=== PATIENT | female | born 1970 | race Caucasian/White ===

== ENCOUNTER 2019-10-02 17:29 | Inpatient (IN) ==
--- NOTE | 2019-10-02 18:21 | Emergency Department Note ---
Impression & Plan Mood disorder, Depression ED Provider Note NAME: SISSY JUDD AGE: 49 SEX: F : 1970 ARRIVES VIA: Walk-In INFORMANT: Patient ED PROVIDER(S): Chandler Beaulieu DO CHIEF COMPLAINT: Depression HPI: Patient is a 49-year-old female who lives at home with 1 of her children that presents the ER referred in by her psychiatrist. Patient has a past medical history of schizoaffective disorder with depression which she has been struggling with for multiple years. She is brought in by her sister. She notes that she is depressed and sad. She has been unable to go to work for the past week. She has been eating and drinking. She notes she has been sleeping more. Denies any suicidal homicidal ideations. No auditory or visual hallucinations. Discussed with her psychiatrist who referred her in. He notes that she is at the point where she is unable to care for herself. He notes this is happened multiple times before in the past. He notes that she will need inpatient treatment. She has had increasing visits with him via telemedicine. He has see n her 3 times in the past week. He notes that she has become more paranoid. She is also become more depressed and notes that is not caring for self in regards to going to work. ROS: See above HPI for pertinent positives & negatives. A total of 10 systems reviewed and were otherwise negative. PAST MEDICAL HISTORY:See Below PAST SURGICAL HISTORY:See Below FAMILY HISTORY:See Below SOCIAL HISTORY:See Below HOME MEDICATIONS:See Below ALLERGIES:See Below VITALS:See Below PHYSICAL EXAMINATION: GENERAL: Sitting up in bed, alert, well appearing, well nourished, no distress, non-toxic EYE EXAM: normal conjunctiva. PERRL and EOM's grossly intact. OROPHARYNX: no exudate, no erythema, lips, buccal mucosa, and tongue normal and mucous membranes are moist NECK: supple, no nuchal rigidity, no adenopathy, non-tender LUNGS: Clear to auscultation. Normal chest wall mechanics HEART: no murmurs, S1 normal and S2 normal ABDOMEN: abdomen soft, non-tender, normo-active bowel sounds, no masses, no rebound or guarding. BACK: Back is symmetrical on inspection and there is no deformity, no midline tenderness, no CVA tenderness. SKIN: no rashes and no bruising UPPER EXTREMITIES: upper extremities are grossly normal. LOWER EXTREMITIES: No pitting edema. NEURO EXAM: Normal sensorium, cranial nerves II-XII grossly intact, normal speech, no gross weakness of arms, no gross weakness of legs. MEDICAL DECISION MAKING: Patient is a 49-year-old female presents the ER for depression. She was referred in by her psychiatrist. She is been more reserved and withdrawn. She is been seeing him more frequently. He notes that she is spiraling downhill and cannot take care of herself. She is not going to work. She is eating and drinking. Denies any suicidal or homicidal ideations. No auditory visual hallucinations. Labs were obtained and showed no significant leukocytosis or anemia. BMP along with LFTs and TSH was unremarkable. UA was negative. Tox was negative. Alcohol was negative. Patient was updated bedside. She was agreeable and came in on 2 oh 1-3 S. Triage Nursing notes reviewed. Prior medical records reviewed Vital Signs: reviewed and remarkable for tachycardia Differential diagnosis: Mood disorder, infection, hypoglycemia, electrolyte abnormalities, cardiac sources, intracerebral event, toxicologic, trauma, neurologic, as well as other pathologies. ER treatment provided: See below Diagnostics interpreted by me: ECG: none Laboratory studies: As stated above and show below. Imaging studies: None Consultation(s): 3 S. and her psychiatric rn care manager and patient was admitted. ED COURSE: Procedures: none Critical Care: None Past Med/Surg History Social History Preferred Language: Zimbabwean Feels Safe at Home: Yes Smoking Status: Current every day smoker Tobacco Type: cigarettes ; Allergies Allergies Allergy/AdvReac Type Severity Reaction Status Date / Time No Known Allergies Allergy Unknown Verified 12/08/04 19:46 Home Meds Home Medications Medication Instructions Recorded Confirmed clonazepam 2 mg PO DAILY 10/02/19 10/02/19 clozapine 300 mg PO BID 10/02/19 10/02/19 clozapine See Rx Instructions .ROUTE .COMPLEX 10/02/19 10/02/19 escitalopram oxalate 20 mg PO DAILY 10/02/19 10/02/19 levothyroxine 137 mcg PO DAILY 10/02/19 10/02/19 levothyroxine 150 mcg PO DAILY 10/02/19 10/02/19 lisinopril 10 mg PO DAILY 10/02/19 10/02/19 lithium carbonate 12,000 mg PO HS 10/02/19 10/02/19 magnesium oxide 400 mg PO DAILY 10/02/19 10/02/19 meloxicam 15 mg PO DAILY 10/02/19 10/02/19 metformin 500 mg PO DAILY 10/02/19 10/02/19 oxybutynin chloride 15 mg PO DAILY 10/02/19 10/02/19 risperidone 4 mg PO HS 10/02/19 10/02/19 simvastatin 10 mg PO DAILY 10/02/19 10/02/19 tizanidine 2 mg PO HS PRN 10/02/19 10/02/19 Results & Data (ED) Vital Signs Vital Signs - 24 hr 10/02/19 17:31 10/02/19 19:31 10/02/19 21:58 Temperature 36.7 C Temperature Source Oral Pulse Rate 119 H 100 H Pulse Rate [Finger] 100 H Pulse Rhythm Regular Pulse Strength Normal Respiratory Rate 18 20 Respiratory Effort / Characteristics Non-Labored Non-Labored Spontaneous Respiratory Depth Normal Normal Respiratory Pattern Regular Blood Pressure 111/60 137/80 Blood Pressure [Left Arm] 106/76 Blood Pressure Mean 77 Blood Pressure Mean [Left Arm] 86 Blood Pressure Position Sitting Pulse Oximetry 98 94 95 Oxygen Delivery Method Room Air Room Air Room Air Sepsis Recent Fever Within 48 Hours No Sepsis Action Taken by Nursing No Action Required Laboratory Data Result diagrams: 10/02/19 18:17 10/02/19 18:17 Lab Results 10/02/19 10/02/19 10/02/19 Range/Units 18:17 18:17 18:17 WBC 9.46 (4.8-10.8) K/uL RBC 4.58 (4.2-5.4) M/uL Hgb 13.8 (12.0-16.0) g/dL Hct 42.4 (37-47) % MCV 92.6 (80-100) fL MCH 30.1 (25-34) pg MCHC 32.5 (32-36) g/dL RDW Std Deviation 49.0 H (36.4-46.3) fL RDW Coeff of Nafisa 14.6 H (11.5-14.5) % Plt Count 227 (130-400) K/uL MPV 9.5 (7.4-10.4) fL Immature Gran % (Auto) 0.2 % Neut % (Auto) 71.2 % Lymph % (Auto) 23.8 % [place] % (Auto) 3.8 % Eos % (Auto) 0.8 % Baso % (Auto) 0.2 % Immature Gran # (Auto) 0.02 (0.00-0.02) K/uL Neut # (Auto) 6.73 H (1.4-6.5) K/uL Lymph # (Auto) 2.25 (1.2-3.4) K/uL [place] # (Auto) 0.36 (0.11-0.59) K/uL Eos # (Auto) 0.08 (0-0.5) K/uL Baso # (Auto) 0.02 (0-0.2) K/uL Sodium 136 (136-145) mmol/L Potassium 3.6 (3.5-5.1) mmol/L Chloride 102 (98-107) mmol/L Carbon Dioxide 26 (21-32) mmol/L Anion Gap 8.0 (3-11) BUN 10 (7-18) mg/dl Creatinine 0.80 (0.6-1.2) mg/dl Est Cr Clr Drug Dosing 118.0 ml/min Est GFR ( Amer) 101.0 Est GFR (Non-Af Amer) 87.2 BUN/Creatinine Ratio 12.4 (10-20) Glucose 152 H (70-99) mg/dl Calcium 10.0 (8.5-10.1) mg/dl Total Bilirubin 0.2 (0.2-1) mg/dl AST 44 H (15-37) U/L ALT 57 (12-78) U/L Alkaline Phosphatase 94 (45-117) U/L Total Protein 8.1 (6.4-8.2) gm/dl Albumin 4.0 (3.4-5.0) gm/dl Globulin 4.1 H (2.5-4.0) gm/dl Albumin/Globulin Ratio 1.0 (0.9-2) TSH 0.409 (0.300-4.500) uIu/ml Urine Color Urine Appearance (Clear) Urine pH (4.5-7.5) Ur Specific [place] (1.000-1.030) Urine Protein (Negative) Urine Glucose (UA) (Negative) Urine Ketones (Negative) Urine Blood (Negative) Urine Nitrite (Negative) Urine Bilirubin (Negative) Urine Urobilinogen (Negative) Ur Leukocyte Esterase (Negative) Salicylates 4.1 (2.8-20) mg/dl Urine Opiates Screen (Neg) Ur Methadone, Qual (Neg) Acetaminophen < 2 L (10-30) ug/ml Urine Barbiturates (Neg) Ur Phencyclidine (PCP) (Neg) U Amphetamin/Meth Scrn (Neg) MDMA (Ecstasy) Screen (Neg) U Benzodiazepines Scrn (Neg) [place] (0.6-1.2) mmol/L Ur Cocaine Metabolite (Neg) U Marijuana (THC) Screen (Neg) Ethyl Alcohol mg/dL (0-3) mg/dl 10/02/19 10/02/19 10/02/19 Range/Units 18:17 18:17 18:22 WBC (4.8-10.8) K/uL RBC (4.2-5.4) M/uL Hgb (12.0-16.0) g/dL Hct (37-47) % MCV (80-100) fL MCH (25-34) pg MCHC (32-36) g/dL RDW Std Deviation (36.4-46.3) fL RDW Coeff of Nfaisa (11.5-14.5) % Plt Count (130-400) K/uL MPV (7.4-10.4) fL Immature Gran % (Auto) % Neut % (Auto) % Lymph % (Auto) % [place] % (Auto) % Eos % (Auto) % Baso % (Auto) % Immature Gran # (Auto) (0.00-0.02) K/uL Neut # (Auto) (1.4-6.5) K/uL Lymph # (Auto) (1.2-3.4) K/uL [place] # (Auto) (0.11-0.59) K/uL Eos # (Auto) (0-0.5) K/uL Baso # (Auto) (0-0.2) K/uL Sodium (136-145) mmol/L Potassium (3.5-5.1) mmol/L Chloride (98-107) mmol/L Carbon Dioxide (21-32) mmol/L Anion Gap (3-11) BUN (7-18) mg/dl Creatinine (0.6-1.2) mg/dl Est Cr Clr Drug Dosing ml/min Est GFR ( Amer) Est GFR (Non-Af Amer) BUN/Creatinine Ratio (10-20) Glucose (70-99) mg/dl Calcium (8.5-10.1) mg/dl Total Bilirubin (0.2-1) mg/dl AST (15-37) U/L ALT (12-78) U/L Alkaline Phosphatase (45-117) U/L Total Protein (6.4-8.2) gm/dl Albumin (3.4-5.0) gm/dl Globulin (2.5-4.0) gm/dl Albumin/Globulin Ratio (0.9-2) TSH (0.300-4.500) uIu/ml Urine Color Urine Appearance (Clear) Urine pH (4.5-7.5) Ur Specific [place] (1.000-1.030) Urine Protein (Negative) Urine Glucose (UA) (Negative) Urine Ketones (Negative) Urine Blood (Negative) Urine Nitrite (Negative) Urine Bilirubin (Negative) Urine Urobilinogen (Negative) Ur Leukocyte Esterase (Negative) Salicylates (2.8-20) mg/dl Urine Opiates Screen Neg (Neg) Ur Methadone, Qual Neg (Neg) Acetaminophen (10-30) ug/ml Urine Barbiturates Neg (Neg) Ur Phencyclidine (PCP) Neg (Neg) U Amphetamin/Meth Scrn Neg (Neg) MDMA (Ecstasy) Screen Neg (Neg) U Benzodiazepines Scrn Neg (Neg) [place] 0.7 (0.6-1.2) mmol/L Ur Cocaine Metabolite Neg (Neg) U Marijuana (THC) Screen Neg (Neg) Ethyl Alcohol mg/dL < 3.0 (0-3) mg/dl 10/02/19 Range/Units 18:22 WBC (4.8-10.8) K/uL RBC (4.2-5.4) M/uL Hgb (12.0-16.0) g/dL Hct (37-47) % MCV (80-100) fL MCH (25-34) pg MCHC (32-36) g/dL RDW Std Deviation (36.4-46.3) fL RDW Coeff of Nafisa (11.5-14.5) % Plt Count (130-400) K/uL MPV (7.4-10.4) fL Immature Gran % (Auto) % Neut % (Auto) % Lymph % (Auto) % [place] % (Auto) % Eos % (Auto) % Baso % (Auto) % Immature Gran # (Auto) (0.00-0.02) K/uL Neut # (Auto) (1.4-6.5) K/uL Lymph # (Auto) (1.2-3.4) K/uL [place] # (Auto) (0.11-0.59) K/uL Eos # (Auto) (0-0.5) K/uL Baso # (Auto) (0-0.2) K/uL Sodium (136-145) mmol/L Potassium (3.5-5.1) mmol/L Chloride (98-107) mmol/L Carbon Dioxide (21-32) mmol/L Anion Gap (3-11) BUN (7-18) mg/dl Creatinine (0.6-1.2) mg/dl Est Cr Clr Drug Dosing ml/min Est GFR ( Amer) Est GFR (Non-Af Amer) BUN/Creatinine Ratio (10-20) Glucose (70-99) mg/dl Calcium (8.5-10.1) mg/dl Total Bilirubin (0.2-1) mg/dl AST (15-37) U/L ALT (12-78) U/L Alkaline Phosphatase (45-117) U/L Total Protein (6.4-8.2) gm/dl Albumin (3.4-5.0) gm/dl Globulin (2.5-4.0) gm/dl Albumin/Globulin Ratio (0.9-2) TSH (0.300-4.500) uIu/ml Urine Color Yellow Urine Appearance Clear (Clear) Urine pH 7.5 (4.5-7.5) Ur Specific [place] 1.009 (1.000-1.030) Urine Protein Negative (Negative) Urine Glucose (UA) Negative (Negative) Urine Ketones Negative (Negative) Urine Blood Negative (Negative) Urine Nitrite Negative (Negative) Urine Bilirubin Negative (Negative) Urine Urobilinogen Negative (Negative) Ur Leukocyte Esterase Negative (Negative) Salicylates (2.8-20) mg/dl Urine Opiates Screen (Neg) Ur Methadone, Qual (Neg) Acetaminophen (10-30) ug/ml Urine Barbiturates (Neg) Ur Phencyclidine (PCP) (Neg) U Amphetamin/Meth Scrn (Neg) MDMA (Ecstasy) Screen (Neg) U Benzodiazepines Scrn (Neg) [place] (0.6-1.2) mmol/L Ur Cocaine Metabolite (Neg) U Marijuana (THC) Screen (Neg) Ethyl Alcohol mg/dL (0-3) mg/dl Discharge Plan Visit Data Chief Complaint: Mental Health Evaluation Stated Complaint: Mental Health Evaluation ED Provider: Chandler Beaulieu Discharge Problem: Mood disorder, Depression Discharge Instructions Interventions: ED Discharge Assessment Last Done: 10/02/19 21:58 Forms Stand Alone Forms: [facility], Suicide Prevention Resources Prescriptions Prescriptions: No Action clonazepam 1 mg Tablet 2 mg PO DAILY RF: 0 tizanidine 2 mg Tablet 2 mg PO HS PRN (Reason: Muscle Spasm) RF: 0 lithium carbonate 300 mg Tablet 12,000 mg PO HS RF: 0 risperidone 4 mg Tablet 4 mg PO HS RF: 0 clozapine 100 mg Tablet 300 mg PO BID RF: 0 simvastatin 10 mg Tablet 10 mg PO DAILY RF: 0 levothyroxine 150 mcg Tablet 150 mcg PO DAILY RF: 0 escitalopram oxalate 20 mg Tablet 20 mg PO DAILY RF: 0 oxybutynin chloride 15 mg Tablet Extended Release 24hr 15 mg PO DAILY RF: 0 lisinopril 10 mg Tablet 10 mg PO DAILY RF: 0 levothyroxine 137 mcg Tablet 137 mcg PO DAILY RF: 0 magnesium oxide 400 mg magnesium Tablet 400 mg PO DAILY RF: 0 clozapine 25 mg Tablet See Rx Instructions .ROUTE .COMPLEX RF: 0 meloxicam 15 mg Tablet 15 mg PO DAILY RF: 0 metformin 500 mg Tablet 500 mg PO DAILY RF: 0 Referrals Referrals: PCP,NO [Primary Care Provider] - Discharge Problem: Depression Qualifiers: Depression Type: unspecified Qualified Code(s): F32.9 - Major depressive disorder, single episode, unspecified
[2019-10-02 18:45] LABS: Basophils # (auto) 0.02 K/uL (0-0.2); Basophils % (auto) 0.2 %; Eosinophils # (auto) 0.08 K/uL (0-0.5); Eosinophils % (auto) 0.8 %; Hematocrit (blood only) 42.4 % (37-47); Hemoglobin 13.8 g/dL (12.0-16.0); Immature Granulocytes # (auto) 0.02 K/uL (0.00-0.02); Immature Granulocytes % (auto) 0.2 %; Lymphocytes # (auto) 2.25 K/uL (1.2-3.4); Lymphocytes % (auto) 23.8 %; Mean Corpuscular Hemoglobin 30.1 pg (25-34); Mean Corpuscular Hgb Conc 32.5 g/dL (32-36); Mean Corpuscular Volume 92.6 fL (80-100); Mean Platelet Volume 9.5 fL (7.4-10.4); Monocytes # (auto) 0.36 K/uL (0.11-0.59); Monocytes % (auto) 3.8 %; Neutrophils # (auto) 6.73 K/uL (1.4-6.5); Neutrophils % (auto) 71.2 %; Platelet Count 227 K/uL (130-400); RDW Coefficient of Variation 14.6 % (11.5-14.5); Red Blood Count 4.58 M/uL (4.2-5.4); White Blood Count 9.46 K/uL (4.8-10.8)
[2019-10-02 18:47] LABS: Appearance Urine Clear (Clear); Bilirubin Urine Negative (Negative); Blood Urine Negative (Negative); Color Urine Yellow; Glucose Urine UA Negative (Negative); Ketones Urine Negative (Negative); Leukocyte Esterase Urine Negative (Negative); Nitrite Urine Negative (Negative); Protein Urine Negative (Negative); Specific Gravity Urine 1.009 (1.000-1.030); Urobilinogen Urine Negative (Negative); pH Urine 7.5 (4.5-7.5)
[2019-10-02 19:05] LABS: BUN Creatinine Ratio 12.4 (10-20); Est GFR (Non-African American) 87.2; Potassium 3.6 mmol/L (3.5-5.1)
[2019-10-02 19:09] LABS: Acetaminophen < 2 ug/ml (10-30); Salicylate 4.1 mg/dl (2.8-20)
[2019-10-02 19:14] LABS: Amphetamines+Metham, Urine Neg (Neg); Barbiturates, Urine Neg (Neg); Benzodiazepine, Urine Neg (Neg); Cocaine, Urine Neg (Neg); MDMA (Ecstacy), Urine Neg (Neg); Methadone, Urine Neg (Neg); Opiate, Urine Neg (Neg); Phencyclidine, Urine Neg (Neg)
[2019-10-02 19:15] LABS: Bilirubin,Total 0.2 mg/dl (0.2-1); Globulin 4.1 gm/dl (2.5-4.0); Thyroid Stimulating Hormone 0.409 uIu/ml (0.300-4.500); Total Protein 8.1 gm/dl (6.4-8.2)
[2019-10-02] MEDS ORDERED: ACETAMINOPHEN 325 MG TAB PO PRN (21:35)
[2019-10-02] MEDS ORDERED: MAGNESIUM HYDROXIDE SUSP 30 ML UDC PO PRN (21:35)
[2019-10-02] MEDS ORDERED: BISMUTH SUBSALICYLATE PER ML OMNICELL CHARGE PO PRN (21:35)
[2019-10-02] MEDS ORDERED: NICOTINE POLACRILEX 2 MG GUM MT PRN (21:35)
[2019-10-02] MEDS ORDERED: ALUMINUM/MAGNESIUM SUSP 30 ML UDC PO PRN (21:35)
[2019-10-02] MEDS ORDERED: SODIUM CHLORIDE 0.65% NA SOLN 45 ML (OCEAN) PRN (21:35)
[2019-10-02] MEDS ORDERED: cloZAPine 25 MG TAB PO ONE (21:43)
[2019-10-02] MEDS ORDERED: haloperidoL 5 MG TAB PO PRN (21:43)
[2019-10-02] MEDS ORDERED: clonazePAM 1 MG TAB PO ONE (21:44)
[2019-10-02 21:59] VITALS: O2SAT 95
[2019-10-02] MEDS ORDERED: cloZAPine 100 MG TAB PO ONE (22:00)
[2019-10-02] MEDS: risperiDONE 2 MG TABLET PO SCH (22:57)
[2019-10-03 07:41] LABS: Glucose Fasting 173 mg/dl (70-99)
[2019-10-03 07:47] LABS: Chol HDL Ratio 4; Cholesterol 193 mg/dl (0-200); HDL Cholesterol 44 mg/dl; LDL Cholesterol Calculated 101 mg/dl; Triglycerides 238 mg/dl (0-150); VLDL Cholesterol 48 mg/dl
[2019-10-03] MEDS: MAGNESIUM OXIDE 400 MG TAB PO SCH (08:29)
[2019-10-03] MEDS: ESCITALOPRAM OXALATE 20 MG TAB PO SCH (08:29)
[2019-10-03] MEDS: OXYBUTYNIN CHLORIDE XL 5 MG TABCR PO SCH (08:29)
[2019-10-03] MEDS: lisinopriL 10 MG TAB PO SCH (08:30)
[2019-10-03] MEDS: SIMVASTATIN 10 MG TAB PO SCH (08:30)
[2019-10-03] MEDS: NICOTINE 21 MG/24 HR TDSY TD SCH (08:34)
[2019-10-03] MEDS ORDERED: METFORMIN HCL 500 MG TAB PO SCH (09:00)
--- NOTE | 2019-10-03 14:43 | History & Physical ---
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 Ur Phencyclidine (PCP) U Amphetamin/Meth Scrn MDMA (Ecstasy) Screen U Benzodiazepines Scrn [place] Ur Cocaine Metabolite U Marijuana (THC) Screen Ethyl Alcohol mg/dL 10/02/19 10/02/19 10/02/19 18:17 18:17 18:22 WBC RBC Hgb Hct MCV MCH MCHC RDW Std Deviation RDW Coeff of Nafisa Plt Count MPV Immature Gran % (Auto) Neut % (Auto) Lymph % (Auto) [place] % (Auto) Eos % (Auto) Baso % (Auto) Immature Gran # (Auto) Neut # (Auto) Lymph # (Auto) [place] # (Auto) Eos # (Auto) Baso # (Auto) Sodium Potassium Chloride Carbon Dioxide Anion Gap BUN Creatinine Est Cr Clr Drug Dosing Est GFR ( Amer) Est GFR (Non-Af Amer) BUN/Creatinine Ratio Glucose Fasting Glucose Calcium Total Bilirubin AST ALT Alkaline Phosphatase Total Protein Albumin Globulin Albumin/Globulin Ratio Triglycerides Cholesterol LDL Cholesterol, Calc VLDL Cholesterol, Calc HDL Cholesterol Cholesterol/HDL Ratio TSH Urine Color Urine Appearance Urine pH Ur Specific [place] Urine Protein Urine Glucose (UA) Urine Ketones Urine Blood Urine Nitrite Urine Bilirubin Urine Urobilinogen Ur Leukocyte Esterase Salicylates Urine Opiates Screen Neg Ur Methadone, Qual Neg Acetaminophen Urine Barbiturates Neg Ur Phencyclidine (PCP) Neg U Amphetamin/Meth Scrn Neg MDMA (Ecstasy) Screen Neg U Benzodiazepines Scrn Neg [place] 0.7 Ur Cocaine Metabolite Neg U Marijuana (THC) Screen Neg Ethyl Alcohol mg/dL < 3.0 10/02/19 10/03/19 18:22 07:02 WBC RBC Hgb Hct MCV MCH MCHC RDW Std Deviation RDW Coeff of Nafisa Plt Count MPV Immature Gran % (Auto) Neut % (Auto) Lymph % (Auto) [place] % (Auto) Eos % (Auto) Baso % (Auto) Immature Gran # (Auto) Neut # (Auto) Lymph # (Auto) [place] # (Auto) Eos # (Auto) Baso # (Auto) Sodium Potassium Chloride Carbon Dioxide Anion Gap BUN Creatinine Est Cr Clr Drug Dosing Est GFR ( Amer) Est GFR (Non-Af Amer) BUN/Creatinine Ratio Glucose Fasting Glucose 173 H Calcium Total Bilirubin AST ALT Alkaline Phosphatase Total Protein Albumin Globulin Albumin/Globulin Ratio Triglycerides 238 H Cholesterol 193 LDL Cholesterol, Calc 101 VLDL Cholesterol, Calc 48 HDL Cholesterol 44 Cholesterol/HDL Ratio 4 TSH Urine Color Yellow Urine Appearance Clear Urine pH 7.5 Ur Specific [place] 1.009 Urine Protein Negative Urine Glucose (UA) Negative Urine Ketones Negative Urine Blood Negative Urine Nitrite Negative Urine Bilirubin Negative Urine Urobilinogen Negative Ur Leukocyte Esterase Negative Salicylates Urine Opiates Screen Ur Methadone, Qual Acetaminophen Urine Barbiturates Ur Phencyclidine (PCP) U Amphetamin/Meth Scrn MDMA (Ecstasy) Screen U Benzodiazepines Scrn [place] Ur Cocaine Metabolite U Marijuana (THC) Screen Ethyl Alcohol mg/dL Current Inpatient Medications Current Inpatient Medications: Current Inpatient Medications Acetaminophen (Tylenol) 650 mg PO Q4H PRN PRN Reason: Headache or Minor Fever Stop: 11/01/19 21:34 Al Hydrox/Mg Hydrox/Simethicone (Maalox) 30 ml PO Q4H PRN PRN Reason: GI Upset Stop: 11/01/19 21:34 Bismuth Subsalicylate (Kaopectate) 15 ml PO PRN PRN PRN Reason: Loose Stool Stop: 11/01/19 21:34 Escitalopram Oxalate (Lexapro Tab) 20 mg PO DAILY [facility] Stop: 11/02/19 08:59 Last Admin: 10/03/19 08:29 Dose: 20 mg Documented by: Haloperidol (Haldol) 5 mg PO Q6 PRN PRN Reason: Anxiety/Agitation Stop: 11/01/19 21:42 Hydroxyzine HCl (Vistaril) 50 mg PO HSZ PRN PRN Reason: Insomnia Stop: 11/01/19 21:34 Hydroxyzine HCl (Vistaril) 25 mg PO Q4H PRN PRN Reason: Anxiety Stop: 11/01/19 21:34 Lisinopril (Zestril) 10 mg PO DAILY [facility] Stop: 11/02/19 08:59 Last Admin: 10/03/19 08:30 Dose: 10 mg Documented by: [place] Carbonate ([place] Carbonate) 1,200 mg PO HS [facility] Stop: 11/02/19 20:59 Last Admin: 10/02/19 22:56 Dose: 1,200 mg Documented by: Magnesium Hydroxide (Milk Of Magnesia) 30 ml PO DAILY PRN PRN Reason: Constipation Stop: 11/01/19 21:34 Magnesium Oxide (Mag-Ox) 400 mg PO DAILY [facility] Stop: 11/02/19 08:59 Last Admin: 10/03/19 08:29 Dose: 400 mg Documented by: Metformin HCl (Glucophage) 500 mg PO DAILY [facility] Stop: 11/02/19 08:59 Last Admin: 10/03/19 08:29 Dose: 500 mg Documented by: Miscellaneous (Remove Nicoderm Patch) 1 ea N/A DAILY@0859 [facility] Stop: 11/03/19 08:58 Nicotine (Nicoderm Cq) 21 mg TD QAM [facility] Stop: 11/02/19 08:59 Last Admin: 10/03/19 08:34 Dose: 21 mg Documented by: Nicotine Polacrilex (Nicorette 2mg) 1 piece MT PRN PRN PRN Reason: Nicotine Withdrawal Stop: 11/01/19 21:34 Oxybutynin Chloride (Ditropan Xl) 15 mg PO DAILY [facility] Stop: 11/02/19 08:59 Last Admin: 10/03/19 08:29 Dose: 15 mg Documented by: Risperidone (Risperdal) 4 mg PO HS [facility] Stop: 11/02/19 21:59 Last Admin: 10/02/19 22:57 Dose: 4 mg Documented by: Simvastatin (Zocor) 10 mg PO DAILY [facility] Stop: 11/02/19 08:59 Last Admin: 10/03/19 08:30 Dose: 10 mg Documented by: Sodium Chloride ([place] Nasal) 1 - 2 sprays NA PRN PRN PRN Reason: Nasal Dryness/Congestion Stop: 11/01/19 21:34
[2019-10-03] MEDS: METFORMIN HCL ER 500 MG TABCR PO SCH (17:31)
[2019-10-03] MEDS ORDERED: LITHIUM CARBONATE 300 MG TAB PO SCH (21:00)
[2019-10-03] MEDS: risperiDONE 2 MG TABLET PO SCH (21:03)
[2019-10-03] MEDS: LITHIUM CARBONATE SLOW REL 300 MG TAB PO SCH (21:03)
[2019-10-04] MEDS: NICOTINE 21 MG/24 HR TDSY TD SCH (09:00)
[2019-10-04] MEDS: lisinopriL 10 MG TAB PO SCH (09:00)
[2019-10-04] MEDS: LEVOTHYROXINE SODIUM 150 MCG TABLET PO SCH (09:00)
[2019-10-04] MEDS: METFORMIN HCL ER 500 MG TABCR PO SCH ×2 (09:00→17:08)
[2019-10-04] MEDS: ESCITALOPRAM OXALATE 20 MG TAB PO SCH (09:00)
[2019-10-04] MEDS: OXYBUTYNIN CHLORIDE XL 5 MG TABCR PO SCH (09:00)
[2019-10-04] MEDS: MAGNESIUM OXIDE 400 MG TAB PO SCH (09:00)
[2019-10-04] MEDS: SIMVASTATIN 10 MG TAB PO SCH (09:01)
--- NOTE | 2019-10-04 13:15 | Psychiatric Progress Note ---
Date of Service October 04, 2019 Impression / Recommendations Impression This 49-year-old woman with a known history of schizoaffective disorder, bipolar type has been admitted voluntarily at the recommendation of her outpatient psychiatrist, Dr. Marcus Jama. Dr. Jama informs us that he is concerned because he cannot be certain that the patient is taking her medications as prescribed, and, within this context, he has noted a fairly progressive deterioration in her mental status and level of functioning over the past 2 months, but particularly during the past several weeks. Reviewed. Discussed with patient that Klonopin 2 mg daily (perhaps more) cannot be stopped abruptly and although she is not currently noting withdrawal she would be at risk. Also reviewed dosing on Clozaril and need to have plan to restart to avoid having to retitrate, I worry her condition would deteriorate or even have withdrawal dyskinsesia from stopping higher end dosing abruptly). Will monitor on med combo. (1) Schizoaffective disorder, bipolar type: 10/03/19 -The patient has been admitted to the [facility]] behavioral health unit and has been placed on every 15 minute safety checks. She will actively be encouraged to participate in individual, group, activity, and, schedule, family interventions. -The goal will be to help the patient secure case management because of her psychiatrist ongoing concerns about her frequent decompensations and, possibly, nonadherence or confused adherence with medications. We note, however, that this may be difficult given her income, her insurance, and her county of residence. -In consultation with Dr. Jama, we will hold several of her medications for the time being, including clozapine, Clozaril, and tizanidine. We note that the patient's mental status today seems to be substantially better than had been reportedly present prior to admission in the community, and this may be a function of the fact that these medications were held at admission. -Her dose of Lithobid will be changed from 1200 mg at bedtime to a dose of 300 mg in the morning and 600 mg at bedtime, and her lithium level will be rechecked. Dr. Jama notes that the patient tends to do best at a lithium level between 0.8 and 1.0. Her lithium level at admission was 0.7, but this represents a trough level that may have been measured more than 20 hours after her most recent previous dose. -We will continue risperidone 4 mg twice a day and plan to titrate at the recommendation of Dr. Jama, as clinically indicated. -Because the patient is on a mood stabilizer (lithium) we feel comfortable in continuing her dose of Lexapro 20 mg a day, particularly given the patient's complaint of depression. -Patient will be monitored by nursing staff for evidence of excessive fluid intake, and we will repeat her serum electrolytes at the beginning of next week. 10/03 Reviewed above. Restart klonopin 0.5 mg Bid with plan to taper and d/c. Clozaril 200 mg this hs and monitor MS. Perhaps lithium dosing can be done during day. I've also seen euresis with Risperdal 4 mg. Obviously can also be age and body habitus. - (2) Disorganized thinkin10/03/19 -The patient's disorganized thinking appears to wax and wane in a pattern that suggest that it is possibly related to adverse medication effects. Currently, our first approach will be to continue to hold several of her medications, and adjust others, while carefully observing the patient's condition to watch for the emergence of worsening psychotic symptoms. -We have noted some evidence of confusion currently, such as her need to ask the same question several times in close sequence. -Several of the patient's medications are currently being held (see above) and we will observe closely for worsening disorganized thinking and behavior, and well reintroduce those medications and titrate as indicated. (3) Blood glucose elevated: 10/03/2019 -The patient says that she believes that she has "borderline" diabetes. However, her fasting blood glucose level this morning was greater than 170. Elevated blood glucose may be contributing the reported polydipsia. -Repeat serum glucose will be measured on 10/06/201910/03--Reviewed above. HgbA1C on next blood draw. Inventory Assets Strengths: Motivated to treatment. Employed. Positive relationship with her outpatient provider (Dr. Jama). Cooperative with recommended treatments. Supportive family, including her sister and her daughter. Needs: Medication adjustments. Resolution of psychosis. Resolution of perceptual disturbances. Improved mood. Risk Factors Assessment Male: No : Yes Do You Have Access To A Gun?: Yes (Patient says that she believes that her 18-year-old son has several firearms. His firearms are not secured and she acknowledges that she has access to them.) Health Problems: Yes Mental Health Diagnoses: Yes Substance Use Disorders: No Previous Attempt: No Family History of Suicide: No Previous Psychiatric Hospitalization: Yes Hopelessness: No Smoker: Yes Protective Factors Assessment Tenriism Beliefs: Yes (Patient says that she is not a member of any roman catholic, but does believe in "a higher power.") : No Responsible for Young Children: No Employed: Yes ([employer] - has not been going to work dt anxiety) Stable Relationships: Yes Supportive Family: Yes Good Rapport with Provider: Yes Absence of Any Risk Factors Above: No Interval History Chief Complaint "I guess I was falling asleep at work, not sure why I had to come". Review of Systems Sleep Information Total Hours of Sleep: 7.75 Sleep Comments: woke at 0315 by staff for bathroom use. Meal Information Percent Meal Consumed - Breakfast: 100 Percent Meal Consumed - Lunch: 100 Percent Meal Consumed - Dinner: 100 Subjective Subjective Patient was seen & assessed and interval progress reviewed with nursing and social work. Had meeting with sister by phone this am. Reportedly refusing BCM and therapist. Seems most upset by ongoing nocturnal enuresis. States that she was very sedated during day prior to admission, states that she drinks 2 drinks a week of ETOH. Reviewed how her meds were held on admission given reports of AMS. States "I don't need the muscle relaxer". Denies taking extra medication by accident. Asked if snores given thick neck, denies any hx of apnea. States hair is short as falling out. States that thoughts are "like before", specifically denies cavazos or paranoia but is disorganized in that can't explain what she is referring to. Physical Exam Psychiatric Orientation: alert, oriented x 3 and cooperative Apperance: appropriately dressed, appropriately groomed and appeared stated age Eye Contact: + fair eye contact Motor Behavior: + psychomotor retardation Affect: + constricted affect Mood: + depressed mood and + anxious mood Thought Process: goal directed thought process Thought Content: reality based without delusions Suicidal Thoughts: denies suicidal thoughts Homicidal Thoughts: denies homicidal thoughts Hallucinations: no auditory hallucinations and no visual hallucinations Cognition: recent memory grossly intact and remote memory grossly intact Estimated Intelligence: average estimated intelligence Insight: + fair insight Judgement: + limited judgement Vital Signs (Past 24 Hours) Last Vital Signs Temp 36.7 C 10/04/19 06:54 Pulse 91 H 10/04/19 06:54 Resp 20 10/04/19 06:54 BP 127/72 10/04/19 06:54 Pulse Ox 95 10/02/19 21:58 Results & Data ([facility]) Current Inpatient Medications Current Inpatient Medications: Current Inpatient Medications Acetaminophen (Tylenol) 650 mg PO Q4H PRN PRN Reason: Headache or Minor Fever Stop: 11/01/19 21:34 Al Hydrox/Mg Hydrox/Simethicone (Maalox) 30 ml PO Q4H PRN PRN Reason: GI Upset Stop: 11/01/19 21:34 Bismuth Subsalicylate (Kaopectate) 15 ml PO PRN PRN PRN Reason: Loose Stool Stop: 11/01/19 21:34 Clonazepam (Klonopin) 0.5 mg PO BID [facility] Stop: 11/03/19 13:04 Clozapine (Clozapine) 200 mg PO HS [facility] Stop: 11/03/19 21:59 Escitalopram Oxalate (Lexapro Tab) 20 mg PO DAILY [facility] Stop: 11/02/19 08:59 Last Admin: 10/04/19 09:00 Dose: 20 mg Documented by: Haloperidol (Haldol) 5 mg PO Q6 PRN PRN Reason: Anxiety/Agitation Stop: 11/01/19 21:42 Hydroxyzine HCl (Vistaril) 50 mg PO HSZ PRN PRN Reason: Insomnia Stop: 11/01/19 21:34 Hydroxyzine HCl (Vistaril) 25 mg PO Q4H PRN PRN Reason: Anxiety Stop: 11/01/19 21:34 [facility]: 11/03/19 07:59 Last Admin: 10/04/19 09:00 Dose: 150 mcg Documented by: Lisinopril (Zestril) 10 mg PO DAILY [facility] Stop: 11/02/19 08:59 Last Admin: 10/04/19 09:00 Dose: 10 mg Documented by: [place] Carbonate (Lithobid) 600 mg PO HS [facility] Stop: 11/02/19 21:59 Last Admin: 10/03/19 21:03 Dose: 600 mg Documented by: Magnesium Hydroxide (Milk Of Magnesia) 30 ml PO DAILY PRN PRN Reason: Constipation Stop: 11/01/19 21:34 Magnesium Oxide (Mag-Ox) 400 mg PO DAILY [facility] Stop: 11/02/19 08:59 Last Admin: 10/04/19 09:00 Dose: 400 mg Documented by: Metformin HCl (Glucophage Er) 500 mg PO BIDM [facility] Stop: 11/02/19 17:44 Last Admin: 10/04/19 09:00 Dose: 500 mg Documented by: Miscellaneous (Remove Nicoderm Patch) 1 ea N/A DAILY@0859 [facility] Stop: 11/03/19 08:58 Last Admin: 10/04/19 09:07 Dose: 1 ea Documented by: Nicotine (Nicoderm Cq) 21 mg TD QAM [facility] Stop: 11/02/19 08:59 Last Admin: 10/04/19 09:00 Dose: 21 mg Documented by: Nicotine Polacrilex (Nicorette 2mg) 1 piece MT PRN PRN PRN Reason: Nicotine Withdrawal Stop: 11/01/19 21:34 Oxybutynin Chloride (Ditropan Xl) 15 mg PO DAILY [facility] Stop: 11/02/19 08:59 Last Admin: 10/04/19 09:00 Dose: 15 mg Documented by: Risperidone (Risperdal) 4 mg PO HS [facility] Stop: 11/02/19 21:59 Last Admin: 10/03/19 21:03 Dose: 4 mg Documented by: Simvastatin (Zocor) 10 mg PO DAILY [facility] Stop: 11/02/19 08:59 Last Admin: 10/04/19 09:01 Dose: 10 mg Documented by: Sodium Chloride ([place] Nasal) 1 - 2 sprays NA PRN PRN PRN Reason: Nasal Dryness/Congestion Stop: 11/01/19 21:34 Mental Health & Subst Abuse Tx Psychiatrist Name of Psychiatrist: Dr. Jama Psychiatrist's Psychiatric Appointment Comment: [address], [place] [address] Therapist Name of Therapist: . Sourcing Intern Name of Sourcing Intern: None Post Discharge Appointments Primary Care Physician Name Of Family Doctor: [facility] - Dr. Frazier Primary Care Provider Appointment Comment: [address] [place] [address], [address], [place] [address] Contact Information Discharge Discharge Address: [address] [place] [address], [place] [id number]
[2019-10-04] MEDS: clonazePAM 0.5 MG TAB PO SCH ×2 (14:17→21:22)
[2019-10-04] MEDS: LITHIUM CARBONATE SLOW REL 300 MG TAB PO SCH (21:22)
[2019-10-04] MEDS: risperiDONE 2 MG TABLET PO SCH (21:22)
[2019-10-04] MEDS: cloZAPine 100 MG TAB PO SCH (21:22)
[2019-10-05] MEDS: LEVOTHYROXINE SODIUM 150 MCG TABLET PO SCH (08:23)
[2019-10-05] MEDS: NICOTINE 21 MG/24 HR TDSY TD SCH (08:24)
[2019-10-05] MEDS: lisinopriL 10 MG TAB PO SCH (08:25)
[2019-10-05] MEDS: OXYBUTYNIN CHLORIDE XL 5 MG TABCR PO SCH (08:25)
[2019-10-05] MEDS: MAGNESIUM OXIDE 400 MG TAB PO SCH (08:25)
[2019-10-05] MEDS: METFORMIN HCL ER 500 MG TABCR PO SCH ×2 (08:25→17:24)
[2019-10-05] MEDS: ESCITALOPRAM OXALATE 20 MG TAB PO SCH (08:25)
[2019-10-05] MEDS: SIMVASTATIN 10 MG TAB PO SCH (08:26)
[2019-10-05] MEDS: clonazePAM 0.5 MG TAB PO SCH ×2 (08:29→20:47)
--- NOTE | 2019-10-05 10:37 | Psychiatric Progress Note ---
Date of Service October 05, 2019 Impression / Recommendations Impression This 49-year-old woman with a known history of schizoaffective disorder, bipolar type has been admitted voluntarily at the recommendation of her outpatient psychiatrist, Dr. Marcus Jama. Dr. Jama informs us that he is concerned because he cannot be certain that the patient is taking her medications as prescribed, and, within this context, he has noted a fairly progressive deterioration in her mental status and level of functioning over the past 2 months, but particularly during the past several weeks. Reviewed. Discussed with patient that Klonopin 2 mg daily (perhaps more) cannot be stopped abruptly and although she is not currently noting withdrawal she would be at risk. Also reviewed dosing on Clozaril and need to have plan to restart to avoid having to retitrate, I worry her condition would deteriorate or even have withdrawal dyskinsesia from stopping higher end dosing abruptly). No issues overnight. (1) Schizoaffective disorder, bipolar type: 10/03/19 -The patient has [facility] and has been placed on every 15 minute safety checks. She will actively be encouraged to participate in individual, group, activity, and, schedule, family interventions. -The goal will be to help the patient secure case management because of her psychiatrist ongoing concerns about her frequent decompensations and, possibly, nonadherence or confused adherence with medications. We note, however, that this may be difficult given her income, her insurance, and her county of residence. -In consultation with Dr. Jama, we will hold several of her medications for the time being, including clozapine, Clozaril, and tizanidine. We note that the patient's mental status today seems to be substantially better than had been reportedly present prior to admission in the community, and this may be a function of the fact that these medications were held at admission. -Her dose of Lithobid will be changed from 1200 mg at bedtime to a dose of 300 mg in the morning and 600 mg at bedtime, and her lithium level will be rechecked. Dr. Jama notes that the patient tends to do best at a lithium level between 0.8 and 1.0. Her lithium level at admission was 0.7, but this represents a trough level that may have been measured more than 20 hours after her most recent previous dose. -We will continue risperidone 4 mg twice a day and plan to titrate at the recommendation of Dr. Jama, as clinically indicated. -Because the patient is on a mood stabilizer (lithium) we feel comfortable in continuing her dose of Lexapro 20 mg a day, particularly given the patient's complaint of depression. -Patient will be monitored by nursing staff for evidence of excessive fluid intake, and we will repeat her serum electrolytes at the beginning of next week. 10/03 Reviewed above. Restart klonopin 0.5 mg Bid with plan to taper and d/c. Clozaril 200 mg this hs and monitor MS. Perhaps lithium dosing can be done dur. I've also seen euresis with Risperdal 4 mg. Obviously can also be age and body habitus. 10/04 taper Klonopin to 0.25 mg po BID with plan to d/c upon discharge. Case review with Dr. Jama tomorrow. - (2) Disorganized thinkin10/03/19 -The patient's disorganized thinking appears to wax and wane in a pattern that suggest that it is possibly related to adverse medication effects. Currently, our first approach will be to continue to hold several of her medications, and adjust others, while carefully observing the patient's condition to watch for the emergence of worsening psychotic symptoms. -We have noted some evidence of confusion currently, such as her need to ask the same question several times in close sequence. -Several of the patient's medications are currently being held (see above) and we will observe closely for worsening disorganized thinking and behavior, and well reintroduce those medications and titrate as indicated. (3) Blood glucose elevated: 10/03/2019 -The patient says that she believes that she has "borderline" diabetes. However, her fasting blood glucose level this morning was greater than 170. Elevated blood glucose may be contributing the reported polydipsia. -Repeat serum glucose will be measured on 10/06/201910/03--Reviewed above. HgbA1C on next blood draw. Inventory Assets Strengths: Motivated to treatment. Employed. Positive relationship with her outpatient provider (Dr. Jama). Cooperative with recommended treatments. Supportive family, including her sister and her daughter. Needs: Medication adjustments. Resolution of psychosis. Resolution of perceptual disturbances. Improved mood. Risk Factors Assessment Male: No : Yes Do You Have Access To A Gun?: Yes (Patient says that she believes that her 18-year-old son has several firearms. His firearms are not secured and she ackn owledges that she has access to them.) Health Problems: Yes Mental Health Diagnoses: Yes Substance Use Disorders: No Previous Attempt: No Family History of Suicide: No Previous Psychiatric Hospitalization: Yes Hopelessness: No Smoker: Yes Protective Factors Assessment Orthodox Beliefs: Yes (Patient says that she is not a member of any episcopalian, but does believe in "a higher power.") : No Responsible for Young Children: No Employed: Yes ([employer] - has not been going to work dt anxiety) Stable Relationships: Yes Supportive Family: Yes Good Rapport with Provider: Yes Absence of Any Risk Factors Above: No Interval History Chief Complaint "I wrote down my meds, I'd like to leave". Review of Systems Sleep Information Total Hours of Sleep: 6.25 Sleep Comments: awake at 0230 (by staff) for bathroom use. Meal Information Percent Meal Consumed - Breakfast: 100 Percent Meal Consumed - Lunch: 100 Percent Meal Consumed - Dinner: 100 Nutrition Comment: pt. had small meal of cereal and coffee Subjective Subjective Patient was seen & assessed and interval progress reviewed with nursing and social work. No new issues overnight, incontinent X1. She did express some interest in seeing Trinidad Kaur again for therapy. She admitted to staff that she has difficulty keeping track of her medications and is willing to consider help with this after discharge. Discussed fasting labs for am and also need for PCP follow up for possible sleep study to rule out apnea. Discussed need to review progress with outpatient provider and do referral. Physical Exam Psychiatric Orientation: alert Apperance: appropriately groomed Eye Contact: + fair eye contact Motor Behavior: no abnormal motor movements Speech: normal rate/rhythm/volume of speech Affect: euthymic affect "I'm fine" Thought Process: + concrete thought process Thought Content: reality based without delusions Suicidal Thoughts: denies suicidal thoughts Homicidal Thoughts: denies homicidal thoughts Hallucinations: no auditory hallucinations and no visual hallucinations Cognition: attention grossly intact Insight: + limited insight Judgement: + limited judgement Vital Signs (Past 24 Hours) Last Vital Signs Temp 36.7 C 10/05/19 06:52 Pulse 83 10/05/19 06:52 Resp 20 10/05/19 06:52 BP 148/90 H 10/05/19 06:52 Pulse Ox 95 10/02/19 21:58 Results & Data ([facility]) Current Inpatient Medications Current Inpatient Medications: Current Inpatient Medications Acetaminophen (Tylenol) 650 mg PO Q4H PRN PRN Reason: Headache or Minor Fever Stop: 11/01/19 21:34 Al Hydrox/Mg Hydrox/Simethicone (Maalox) 30 ml PO Q4H PRN PRN Reason: GI Upset Stop: 11/01/19 21:34 Bismuth Subsalicylate (Kaopectate) 15 ml PO PRN PRN PRN Reason: Loose Stool Stop: 11/01/19 21:34 Clonazepam (Klonopin) 0.5 mg PO BID [facility] Stop: 10/05/19 21:01 Last Admin: 10/05/19 08:29 Dose: 0.5 mg Documented by: Clonazepam (Klonopin) 0.25 mg PO BID [facility] Stop: 11/05/19 08:59 Clozapine (Clozapine) 200 mg PO HS [facility] Stop: 11/03/19 21:59 Last Admin: 10/04/19 21:22 Dose: 200 mg Documented by: Escitalopram Oxalate (Lexapro Tab) 20 mg PO DAILY [facility] Stop: 11/02/19 08:59 Last Admin: 10/05/19 08:25 Dose: 20 mg Documented by: Haloperidol (Haldol) 5 mg PO Q6 PRN PRN Reason: Anxiety/Agitation Stop: 11/01/19 21:42 Hydroxyzine HCl (Vistaril) 50 mg PO HSZ PRN PRN Reason: Insomnia Stop: 11/01/19 21:34 Hydroxyzine HCl (Vistaril) 25 mg PO Q4H PRN PRN Reason: Anxiety Stop: 11/01/19 21:34 Levothyroxine Sodium (Synthroid) 150 mcg PO DAILY [facility] Stop: 11/03/19 07:59 Last Admin: 10/05/19 08:23 Dose: 150 mcg Documented by: Lisinopril (Zestril) 10 mg PO DAILY [facility] Stop: 11/02/19 08:59 Last Admin: 10/05/19 08:25 Dose: 10 mg Documented by: [place] Carbonate (Lithobid) 600 mg PO HS [facility] Stop: 11/02/19 21:59 Last Admin: 10/04/19 21:22 Dose: 600 mg Documented by: Magnesium Hydroxide (Milk Of Magnesia) 30 ml PO DAILY PRN PRN Reason: Constipation Stop: 11/01/19 21:34 Magnesium Oxide (Mag-Ox) 400 mg PO DAILY [facility] Stop: 11/02/19 08:59 Last Admin: 10/05/19 08:25 Dose: 400 mg Documented by: Metformin HCl (Glucophage Er) 500 mg PO BIDM [facility] Stop: 11/02/19 17:44 Last Admin: 10/05/19 08:25 Dose: 500 mg Documented by: Miscellaneous (Remove Nicoderm Patch) 1 ea N/A DAILY@[id number] [facility] Stop: 11/03/19 08:58 Last Admin: 10/05/19 08:33 Dose: 1 ea Documented by: Nicotine (Nicoderm Cq) 21 mg TD QAM [facility] Stop: 11/02/19 08:59 Last Admin: 10/05/19 08:24 Dose: 21 mg Documented by: Nicotine Polacrilex (Nicorette 2mg) 1 piece MT PRN PRN PRN Reason: Nicotine Withdrawal Stop: 11/01/19 21:34 Oxybutynin Chloride (Ditropan Xl) 15 mg PO DAILY [facility] Stop: 11/02/19 08:59 Last Admin: 10/05/19 08:25 Dose: 15 mg Documented by: Risperidone (Risperdal) 4 mg PO HS [facility] Stop: 11/02/19 21:59 Last Admin: 10/04/19 21:22 Dose: 4 mg Documented by: Simvastatin (Zocor) 10 mg PO DAILY [facility] Stop: 11/02/19 08:59 Last Admin: 10/05/19 08:26 Dose: 10 mg Documented by: Sodium Chloride (Pratt Nasal) 1 - 2 sprays NA PRN PRN PRN Reason: Nasal Dryness/Congestion Stop: 11/01/19 21:34 Mental Health & Subst Abuse Tx Psychiatrist Name of Psychiatrist: Dr. Jama Psychiatrist's Psychiatric Appointment Comment: [address] [address], [place] [address] Therapist Name of Therapist: . Ehs Engineer Name of Ehs Engineer: None Post Discharge Appointments Primary Care Physician Name Of Family Doctor: [facility] - Dr. Frazier Primary Care Provider Appointment Comment: [address] [place] [address], [address], [place] [address] Contact Information Discharge Discharge Address: [address] [facility], [place] [address]
[2019-10-05] MEDS: LITHIUM CARBONATE SLOW REL 300 MG TAB PO SCH (20:46)
[2019-10-05] MEDS: risperiDONE 2 MG TABLET PO SCH (20:46)
[2019-10-05] MEDS: cloZAPine 100 MG TAB PO SCH (20:47)
[2019-10-06 06:56] VITALS: BP 121/78; TEMP 98.1
[2019-10-06 07:48] LABS: BUN Creatinine Ratio 14.6 (10-20); Calcium 9.2 mg/dl (8.5-10.1); Creatinine Clr Calc Pharmacy 146.9 ml/min; Est GFR (African American) 122.3; Est GFR (Non-African American) 105.5; Potassium 3.7 mmol/L (3.5-5.1)
[2019-10-06] MEDS: MAGNESIUM OXIDE 400 MG TAB PO SCH (08:19)
[2019-10-06] MEDS: ESCITALOPRAM OXALATE 20 MG TAB PO SCH (08:19)
[2019-10-06] MEDS: lisinopriL 10 MG TAB PO SCH (08:19)
[2019-10-06] MEDS: NICOTINE 21 MG/24 HR TDSY TD SCH (08:19)
[2019-10-06] MEDS: SIMVASTATIN 10 MG TAB PO SCH (08:20)
[2019-10-06] MEDS: LEVOTHYROXINE SODIUM 150 MCG TABLET PO SCH (08:20)
[2019-10-06] MEDS: METFORMIN HCL ER 500 MG TABCR PO SCH (08:20)
[2019-10-06] MEDS: OXYBUTYNIN CHLORIDE XL 5 MG TABCR PO SCH (08:20)
[2019-10-06] MEDS ORDERED: clonazePAM 0.5 MG TAB PO SCH (09:00)
[2019-10-06 09:12] LABS: Estimated Average Glucose 163 mg/dl; Hemoglobin A1C 7.3 % (4.5-5.6)
[2019-10-06] MEDS ORDERED: DESTROY THIS MEDICATION ONE (11:46)
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
[2019-10-06 12:26] VITALS: PULSE 103
== END 2019-10-06 13:40 | disposition home or self-care (01) | DRG 885 ==
LOC: ED 17:29 → 3S 21:36